=== PATIENT | female | born 1990 | race Caucasian/White ===

== ENCOUNTER 2023-09-29 20:12 | Emergency (ER) | payer MEDICAID ==
[~2023-09-29] VITALS: Ht 152.4 cm; Wt 45.5 kg
[2023-09-29 20:18] VITALS: TEMP 98.3
[2023-09-29 20:57] LABS: BASOPHILS % (AUTO) 0.2 % (0-1); EOSINOPHILS # (AUTO) 0.2 X10'3 (0-0.9); EOSINOPHILS % (AUTO) 1.4 % (0-6); HEMATOCRIT 42.8 % (35.0-45.0); HEMOGLOBIN 14.3 g/dl (12.0-16.0); LYMPHOCYTES # (AUTO) 1.3 X10'3 (1.1-4.8); LYMPHOCYTES % (AUTO) 9.6 % (21-51); MEAN CORPUSCULAR HEMOGLOBIN 30.6 PG (27.0-31.0); MEAN CORPUSCULAR HGB CONC 33.3 g/dL (33.0-36.5); MEAN CORPUSCULAR VOLUME 92.1 FL (78-98); MEAN PLATELET VOLUME 7.1 FL (7.4-10.4); MONOCYTES # (AUTO) 0.8 X10'3 (0-0.9); MONOCYTES % (AUTO) 5.6 % (2-12); NEUTROPHILS # (AUTO) 11.6 X10'3 (1.8-7.7); NEUTROPHILS % (AUTO) 83.2 % (42-75); PLATELET COUNT 407 X10'3 (140-440); RED BLOOD COUNT 4.65 X10'6 (4.20-5.60); RED CELL DISTRIBUTION WIDTH 12.7 % (11.5-14.5); WHITE BLOOD COUNT 13.9 X10'3 (4.5-11.0)
[2023-09-29] MEDS: mag hydrox/Alum hydrox/simeth 30ml oral suspension PO ONE (21:17)
[2023-09-29] MEDS: ondansetron/PF 4mg/2ml inj IV ONE (21:17)
[2023-09-29 21:18] LABS: ALANINE AMINOTRANSFERASE 28 U/L (12-78); ALBUMIN 3.9 G/DL (3.4-5.0); ALKALINE PHOSPHATASE 56 IU/L (46-116); ANION GAP 9 (8-16); ASPARTATE AMINO TRANSFERASE 13 U/L (10-37); BILIRUBIN,TOTAL 0.4 MG/DL (0.1-1.0); BLOOD UREA NITROGEN 10 MG/DL (7-18); CALCIUM 9.6 MG/DL (8.5-10.1); CHLORIDE 107 MMOL/L (99-107); CREATININE 0.77 MG/DL (0.40-0.90); GLUCOSE 106 MG/DL (70-104); POTASSIUM 3.9 MMOL/L (3.5-5.1); SODIUM 140 MMOL/L (135-145); TOTAL CARBON DIOXIDE 23.7 MMOL/L (24-32); TOTAL PROTEIN 7.8 G/DL (6.4-8.2); eCRCL 74 ML/MIN; eGFR 86 ML/MIN
[2023-09-29] MEDS: LIDOcaine 2% Viscous 15ml cup MM ONE (21:18)
[2023-09-29] MEDS: normal saline 1000ml 1,000 ML IV ONE (21:18)
[2023-09-29 21:20] LABS: LIPASE 60 U/L (16-77)
[2023-09-29] MEDS: fentaNYL/PF 50MCG/1 ML 2ML syringe IV ONE ×2 (21:20→23:25)
[2023-09-29 21:34] LABS: BILIRUBIN,URINE NEGATIVE (Neg); CLARITY,URINE SLIGHTLY CLOUDY (Clear); COLOR,URINE YELLOW (Yellow); GLUCOSE, URINE NEGATIVE (Neg); KETONES,URINE NEGATIVE (Neg); LEUKOCYTE ESTERASE ,URINE NEGATIVE (Neg); NITRITES, URINE NEGATIVE (Neg); OCCULT BLOOD,URINE TRACE-INTACT (Neg); PH,URINE 7.5 (4.8-8.0); PROTEIN,URINE NEGATIVE (Neg); UROBILINOGEN,URINE 0.2 E.U/dL (0.2-1.0)
[2023-09-29 21:35] LABS: UA COLLECTION TYPE CLN CATCH MIDSTREAM; URINE HCG NEGATIVE (NEG)
[2023-09-29 21:42] LABS: BACTERIA,URINE 3+ /HPF (Neg); MUCUS STRANDS FEW /LPF (Neg); RENAL CELLS, URINE MODERATE /HPF; SQUAMOUS EPITHELIAL CELL,UR MODERATE /LPF (FEW); TRANSITIONAL EPI CELLS,URINE FEW /HPF
[2023-09-29] MEDS: acetaminophen 1,000mg/100ml IV 100 ML IV ONE (21:57)
[2023-09-29 22:30] VITALS: BP 129/87; PULSE 99; O2SAT 98
[2023-09-29] MEDS ORDERED: ONDA8TAB13 PO (23:20)
[2023-09-29] MEDS ORDERED: BISA-78 PO (23:20)
[2023-09-29 23:25] VITALS: RESP 17
[2023-09-29] MEDS: dicyclomine 10 MG capsule PO ONE (23:26)
== END 2023-09-29 23:32 | disposition home or self-care (01) ==
LOC: ER 20:12
DX: R10.13 Epigastric pain (principal); Z88.5 Allergy status to narcotic agent; Z88.6 Allergy status to analgesic agent
CPT/HCPCS: 36415; 74176; 80053; 81001; 81025; 83690; 84484; 85025; 87088; 93005; 96361; 96374; 96375; 96376; 99285; J0131; J2405; J3010; J7030

== ENCOUNTER 2023-12-04 23:01 | Emergency (ER) | payer MEDICAID ==
[~2023-12-04] VITALS: Ht 152.4 cm; Wt 46.8 kg
[~2023-12-04 23:01] MED LIST: BISA-78 PO; ONDA-245 PO
[2023-12-04 23:20] VITALS: TEMP 98.4
[2023-12-04 23:49] LABS: BASOPHILS % (AUTO) 0.3 % (0-1); EOSINOPHILS # (AUTO) 0.1 X10'3 (0-0.9); EOSINOPHILS % (AUTO) 1.4 % (0-6); HEMATOCRIT 41.6 % (35.0-45.0); HEMOGLOBIN 14.2 g/dl (12.0-16.0); LYMPHOCYTES # (AUTO) 1.3 X10'3 (1.1-4.8); LYMPHOCYTES % (AUTO) 16.1 % (21-51); MEAN CORPUSCULAR HEMOGLOBIN 31.4 PG (27.0-31.0); MEAN CORPUSCULAR HGB CONC 34.2 g/dL (33.0-36.5); MEAN CORPUSCULAR VOLUME 91.8 FL (78-98); MEAN PLATELET VOLUME 6.9 FL (7.4-10.4); MONOCYTES # (AUTO) 0.7 X10'3 (0-0.9); MONOCYTES % (AUTO) 9.1 % (2-12); NEUTROPHILS # (AUTO) 5.8 X10'3 (1.8-7.7); NEUTROPHILS % (AUTO) 73.1 % (42-75); PLATELET COUNT 368 X10'3 (140-440); RED BLOOD COUNT 4.53 X10'6 (4.20-5.60); RED CELL DISTRIBUTION WIDTH 12.8 % (11.5-14.5)
[2023-12-05 00:08] LABS: ANION GAP 11 (8-16); BLOOD UREA NITROGEN 10 MG/DL (7-18); BUN/CREATININE RATIO 14.5 (10.0-20.0); CALCIUM 8.9 MG/DL (8.5-10.1); CHLORIDE 106 MMOL/L (99-107); CREATININE 0.69 MG/DL (0.40-0.90); GLUCOSE 107 MG/DL (70-104); POTASSIUM 4.3 MMOL/L (3.5-5.1); SODIUM 144 MMOL/L (135-145); TOTAL CARBON DIOXIDE 27.5 MMOL/L (24-32); eCRCL 82 ML/MIN; eGFR > 90 ML/MIN
[2023-12-05 00:12] LABS: ETHANOL < 10 MG/DL (<10); MAGNESIUM 2.2 MG/DL (1.5-2.4)
[2023-12-05] MEDS: mag hydrox/Alum hydrox/simeth 30ml oral suspension PO ONE (00:26)
[2023-12-05] MEDS: LIDOcaine 2% Viscous 15ml cup TP ONE (00:26)
[2023-12-05 00:46] LABS: LIPASE 54 U/L (16-77)
[2023-12-05 00:49] LABS: ALANINE AMINOTRANSFERASE 25 U/L (12-78); ALBUMIN 3.7 G/DL (3.4-5.0); ALBUMIN/GLOBULIN RATIO 0.9 (1.1-1.5); ALKALINE PHOSPHATASE 66 IU/L (46-116); ASPARTATE AMINO TRANSFERASE 17 U/L (10-37); BILIRUBIN,TOTAL 0.2 MG/DL (0.1-1.0); TOTAL PROTEIN 7.9 G/DL (6.4-8.2)
[2023-12-05 01:36] LABS: URINE HCG NEGATIVE (NEG)
[2023-12-05 01:45] LABS: URINE AMPHETAMINE SCREEN NEGATIVE (Neg); URINE BARBITUATE SCREEN NEGATIVE (Neg); URINE BENZODIAZEPINES SCREEN NEGATIVE (Neg); URINE CANNABINOID SCREEN NEGATIVE (Neg); URINE COCAINE SCREEN NEGATIVE (Neg); URINE METHADONE SCREEN NEGATIVE (Neg); URINE OPIATE SCREEN NEGATIVE (Neg); URINE PHENCYCLIDINE SCREEN NEGATIVE (Neg)
[2023-12-05 01:54] LABS: D-DIMER 0.25 MG/L FEU (0-0.50)
[2023-12-05 02:56] VITALS: BP 106/69; PULSE 87; RESP 16; O2SAT 98
== END 2023-12-05 02:50 | disposition home or self-care (01) ==
LOC: ER 23:01
DX: K20.90 Esophagitis, unspecified without bleeding (principal); R09.81 Nasal congestion; R05.9 Cough, unspecified; J06.9 Acute upper respiratory infection, unspecified; R10.13 Epigastric pain; Z88.5 Allergy status to narcotic agent; Z88.8 Allergy status to other drugs, medicaments and biological substances; Z79.899 Other long term (current) drug therapy
CPT/HCPCS: 36415; 71046; 80053; 80305; 80320; 81025; 83690; 83735; 84484; 85025; 85379; 93005; 99285

== ENCOUNTER 2023-12-16 21:43 | Emergency (ER) | payer MEDICAID ==
[~2023-12-16] VITALS: Ht 152.4 cm; Wt 47.0 kg
[2023-12-16] MEDS ORDERED: HYDR-3965 PO (22:40)
[2023-12-16] MEDS ORDERED: AMOX-117 PO (22:40)
[2023-12-16] MEDS ORDERED: FLUT16SP2 BOTHNARES (22:40)
[2023-12-16] MEDS ORDERED: PSEU120T56 PO (22:40)
[2023-12-16] MEDS: ketorolac trometh 15mg/ml vial 15 MG/ML ML IM ONE (22:51)
[2023-12-16 22:59] VITALS: BP 128/80; PULSE 80; RESP 16; TEMP 98.7; O2SAT 99
== END 2023-12-16 23:03 | disposition home or self-care (01) ==
LOC: ER 21:43
DX: J32.8 Other chronic sinusitis (principal); Z88.8 Allergy status to other drugs, medicaments and biological substances; Z91.040 Latex allergy status; Z79.899 Other long term (current) drug therapy
CPT/HCPCS: 96372; 99283; J1885

== ENCOUNTER 2023-12-23 18:34 | Emergency (ER) | payer MEDICAID ==
[~2023-12-23] VITALS: Ht 152.4 cm; Wt 44.5 kg
[~2023-12-23 18:34] MED LIST changes: +AMOX-117 PO; +FLUT16SP2 BOTHNARES; +HYDR-3965 PO; +PSEU120T56 PO
[2023-12-23 19:20] LABS: BASOPHILS % (AUTO) 0.2 % (0-1); EOSINOPHILS # (AUTO) 0.2 X10'3 (0-0.9); HEMATOCRIT 42.9 % (35.0-45.0); HEMOGLOBIN 14.1 g/dl (12.0-16.0); LYMPHOCYTES # (AUTO) 0.8 X10'3 (1.1-4.8); LYMPHOCYTES % (AUTO) 8.8 % (21-51); MEAN CORPUSCULAR HEMOGLOBIN 29.9 PG (27.0-31.0); MEAN CORPUSCULAR HGB CONC 32.8 g/dL (33.0-36.5); MEAN CORPUSCULAR VOLUME 91.1 FL (78-98); MEAN PLATELET VOLUME 6.5 FL (7.4-10.4); MONOCYTES # (AUTO) 0.8 X10'3 (0-0.9); MONOCYTES % (AUTO) 8.8 % (2-12); NEUTROPHILS # (AUTO) 6.9 X10'3 (1.8-7.7); NEUTROPHILS % (AUTO) 80.2 % (42-75); PLATELET COUNT 520 X10'3 (140-440); RED BLOOD COUNT 4.71 X10'6 (4.20-5.60); RED CELL DISTRIBUTION WIDTH 12.6 % (11.5-14.5); WHITE BLOOD COUNT 8.6 X10'3 (4.5-11.0)
[2023-12-23 19:25] LABS: ALANINE AMINOTRANSFERASE 23 U/L (12-78); ALBUMIN 3.3 G/DL (3.4-5.0); ALBUMIN/GLOBULIN RATIO 0.8 (1.1-1.5); ALKALINE PHOSPHATASE 62 IU/L (46-116); ANION GAP 8 (8-16); ASPARTATE AMINO TRANSFERASE 16 U/L (10-37); BILIRUBIN,TOTAL 0.2 MG/DL (0.1-1.0); BLOOD UREA NITROGEN 11 MG/DL (7-18); BUN/CREATININE RATIO 15.1 (10.0-20.0); CALCIUM 9.1 MG/DL (8.5-10.1); CHLORIDE 107 MMOL/L (99-107); CREATININE 0.73 MG/DL (0.40-0.90); GLUCOSE 96 MG/DL (70-104); SODIUM 142 MMOL/L (135-145); TOTAL CARBON DIOXIDE 26.8 MMOL/L (24-32); TOTAL PROTEIN 7.4 G/DL (6.4-8.2); eCRCL 76 ML/MIN; eGFR > 90 ML/MIN
[2023-12-23 19:33] LABS: PRO BRAIN NATRIURETIC PEPTIDE 188 PG/ML (0-125)
[2023-12-23] MEDS: pantoprazole 40 MG vial IV ONE (20:43)
[2023-12-23] MEDS: famotidine/PF 10 mg/ml inj IV ONE (20:44)
[2023-12-23] MEDS: ondansetron/PF 4mg/2ml inj IV ONE (20:44)
[2023-12-23] MEDS: mag hydrox/Alum hydrox/simeth 30ml oral suspension PO ONE (20:44)
[2023-12-23] MEDS: LIDOcaine 2% Viscous 15ml cup MM ONE (20:44)
[2023-12-23] MEDS ORDERED: LIDO15SO9 PO (21:41)
[2023-12-23] MEDS ORDERED: FAMO-129 PO (21:41)
[2023-12-23 22:02] VITALS: BP 115/79; PULSE 100; RESP 16; TEMP 98.7; O2SAT 99
== END 2023-12-23 22:03 | disposition home or self-care (01) ==
LOC: ER 18:35
DX: R07.9 Chest pain, unspecified (principal); Z88.8 Allergy status to other drugs, medicaments and biological substances; Z91.040 Latex allergy status; Z79.1 Long term (current) use of non-steroidal anti-inflammatories (NSAID); Z79.51 Long term (current) use of inhaled steroids; Z79.899 Other long term (current) drug therapy
CPT/HCPCS: 36415; 71045; 80053; 83880; 84484; 85025; 93005; 96374; 96375; 99285; J2405; J2470; J3490; J7030

== ENCOUNTER 2023-12-24 09:12 | Emergency (ER) | payer MEDICAID ==
[~2023-12-24] VITALS: Ht 152.4 cm; Wt 98.0 kg
[~2023-12-24 09:12] MED LIST changes: +FAMO-129 PO; +LIDO15SO9 PO
[2023-12-24 09:43] LABS: BASOPHILS % (AUTO) 0.3 % (0-1); EOSINOPHILS % (AUTO) 0.6 % (0-6); HEMOGLOBIN 14.6 g/dl (12.0-16.0); LYMPHOCYTES # (AUTO) 0.8 X10'3 (1.1-4.8); LYMPHOCYTES % (AUTO) 13.1 % (21-51); MEAN CORPUSCULAR HGB CONC 34.1 g/dL (33.0-36.5); MEAN CORPUSCULAR VOLUME 91.1 FL (78-98); MEAN PLATELET VOLUME 6.6 FL (7.4-10.4); MONOCYTES # (AUTO) 0.7 X10'3 (0-0.9); MONOCYTES % (AUTO) 11.8 % (2-12); NEUTROPHILS # (AUTO) 4.2 X10'3 (1.8-7.7); NEUTROPHILS % (AUTO) 74.2 % (42-75); PLATELET COUNT 502 X10'3 (140-440); RED BLOOD COUNT 4.72 X10'6 (4.20-5.60); RED CELL DISTRIBUTION WIDTH 12.6 % (11.5-14.5); WHITE BLOOD COUNT 5.7 X10'3 (4.5-11.0)
[2023-12-24 09:57] LABS: ALANINE AMINOTRANSFERASE 25 U/L (12-78); ALBUMIN 3.6 G/DL (3.4-5.0); ALBUMIN/GLOBULIN RATIO 0.8 (1.1-1.5); ALKALINE PHOSPHATASE 58 IU/L (46-116); ANION GAP 13 (8-16); ASPARTATE AMINO TRANSFERASE 20 U/L (10-37); BILIRUBIN,TOTAL 0.3 MG/DL (0.1-1.0); BLOOD UREA NITROGEN 10 MG/DL (7-18); BUN/CREATININE RATIO 11.4 (10.0-20.0); CALCIUM 9.6 MG/DL (8.5-10.1); CHLORIDE 105 MMOL/L (99-107); CREATININE 0.88 MG/DL (0.40-0.90); GLUCOSE 100 MG/DL (70-104); POTASSIUM 3.5 MMOL/L (3.5-5.1); SODIUM 140 MMOL/L (135-145); eCRCL 64 ML/MIN; eGFR 73 ML/MIN
[2023-12-24 10:06] LABS: PRO BRAIN NATRIURETIC PEPTIDE 195 PG/ML (0-125)
[2023-12-24] MEDS: ketorolac trometh 15mg/ml vial 15 MG/ML ML IV STA (10:59)
[2023-12-24] MEDS: LIDOcaine 2% Viscous 15ml cup MM ONE (12:02)
[2023-12-24] MEDS: mag hydrox/Alum hydrox/simeth 30ml oral suspension PO ONE (12:02)
[2023-12-24] MEDS: normal saline 1000ML IV soln IVB ONE ×2 (12:09→12:17)
[2023-12-24 13:08] LABS: H PYLORI ANTIBODY NEGATIVE (Neg)
[2023-12-24 13:09] VITALS: TEMP 98.7
[2023-12-24] MEDS ORDERED: acetaminophen 325mg tablet PO SCH (13:15)
[2023-12-24] MEDS: acetaminophen 325mg tablet PO ONE (13:21)
[2023-12-24 13:30] VITALS: BP 110/74; PULSE 105; RESP 16; O2SAT 98
== END 2023-12-24 13:37 | disposition home or self-care (01) ==
LOC: ER 09:13
DX: R07.89 Other chest pain (principal); K21.9 Gastro-esophageal reflux disease without esophagitis; B34.9 Viral infection, unspecified; Z88.8 Allergy status to other drugs, medicaments and biological substances; Z91.040 Latex allergy status; Z79.2 Long term (current) use of antibiotics; Z79.51 Long term (current) use of inhaled steroids; Z20.822 Contact with and (suspected) exposure to COVID-19
CPT/HCPCS: 36415; 71045; 76700; 80053; 83880; 84484; 85025; 86677; 87502; 87503; 87811; 93005; 96361; 96374; 99285; J1885; J7030

== ENCOUNTER 2024-03-11 09:56 | Day surgery (SDC) | payer MEDICAID ==
[2024-03-09 12:41] LABS: BASOPHILS % (AUTO) 0.4 % (0-1); EOSINOPHILS # (AUTO) 0.1 X10'3 (0-0.9); EOSINOPHILS % (AUTO) 0.9 % (0-6); LYMPHOCYTES # (AUTO) 1.9 X10'3 (1.1-4.8); LYMPHOCYTES % (AUTO) 30.6 % (21-51); MEAN CORPUSCULAR HEMOGLOBIN 30.7 PG (27.0-31.0); MEAN CORPUSCULAR HGB CONC 33.7 g/dL (33.0-36.5); MEAN CORPUSCULAR VOLUME 91.2 FL (78-98); MEAN PLATELET VOLUME 6.9 FL (7.4-10.4); MONOCYTES # (AUTO) 0.5 X10'3 (0-0.9); MONOCYTES % (AUTO) 7.4 % (2-12); NEUTROPHILS # (AUTO) 3.8 X10'3 (1.8-7.7); NEUTROPHILS % (AUTO) 60.7 % (42-75); PRE OP HEMATOCRIT 43.2 % (35.0-45.0); PRE OP HEMOGLOBIN 14.6 g/dL (12.0-16.0); PRE OP PLATELET COUNT 423 X10'3 (140-440); PRE OP WHITE BLOOD COUNT 6.3 10'3 (4.8-10.8); RED BLOOD COUNT 4.74 X10'6 (4.20-5.60); RED CELL DISTRIBUTION WIDTH 13.2 % (11.5-14.5)
[2024-03-09 13:04] LABS: HCG SERUM QL NEGATIVE
[2024-03-09 13:07] LABS: ALKALINE PHOSPHATASE 51 IU/L (46-116); BLOOD UREA NITROGEN 11 MG/DL (7-18); BUN/CREATININE RATIO 13.6 (10.0-20.0); CALCIUM 8.8 MG/DL (8.5-10.1); CHLORIDE 107 MMOL/L (99-107); CREATININE 0.81 MG/DL (0.40-0.90); PRE OP ALT 20 U/L (30-65); PRE OP ANION GAP 8 (8-16); PRE OP AST 15 U/L (10-37); PRE OP BILIRUB, TOTAL 0.6 MG/DL (0.0-1.0); PRE OP GLUCOSE 88 MG/DL (70-104); PRE OP POTASSIUM 4.1 MMOL/L (3.4-5.1); PRE OP SODIUM 143 MMOL/L (135-145); TOTAL CARBON DIOXIDE 27.7 MMOL/L (24-32); TOTAL PROTEIN 8.2 G/DL (6.4-8.2); eGFR 80 ML/MIN
[2024-03-11] VITALS (10 sets, daily range): BP systolic 105–121; BP diastolic 64–76; PULSE 81–95; RESP 11–17; TEMP 98.4; O2SAT 97–100
[~2024-03-11] VITALS: Ht 152.4 cm; Wt 44.4 kg
[~2024-03-11 09:56] MED LIST changes: +ALBU8HFA PO; -AMOX-117 PO; -BISA-78 PO; +BUPIVAcaine 0.25% w/Epi /PF 30ml vial ONE; +BUPIVAcaine/PF 2.5mg/ml (0.25%) 10ml vial ONE; +DESO1TAB33 PO; -FAMO-129 PO; -FLUT16SP2 BOTHNARES; -HYDR-3965 PO; -LIDO15SO9 PO; +LIDOcaine 1% (10mg/ml)w/preservative inj. 20ml MDV ONE; -ONDA-245 PO; -PSEU120T56 PO; +ceFAZolin 2gm in dextrose, iso 50 ML IV ONE
[2024-03-11] MEDS: famotidine 20mg tablet PO ONE (10:21)
[2024-03-11] MEDS: ringers solution, lacted 1,000 ML IV SCH (10:22)
[2024-03-11] MEDS ORDERED: fentaNYL/PF 50MCG/1 ML 2ML syringe ONE (10:37)
[2024-03-11] MEDS ORDERED: midazolam 1 mg/ML 2ml injection ONE (10:38)
[2024-03-11] MEDS ORDERED: propofol 10mg/ml 20ml vial IV ONE (10:41)
[2024-03-11] MEDS ORDERED: ketorolac trometh 30MG/ML vial 30 MG/ML VIAL ONE (10:47)
[2024-03-11] MEDS ORDERED: ondansetron/PF 4mg/2ml inj ONE (10:47)
[2024-03-11] MEDS ORDERED: meperidine/PF 25mg/ml syringe ONE (10:51)
[2024-03-11] MEDS: BUPIVAcaine 2.5mg/ml inj 50ml vial (contains preservative) SQ ONE (11:20)
== END 2024-03-11 13:21 | disposition home or self-care (01) ==
LOC: PAS 09:56
PROVIDERS: ATTEND Surgery
DX: R92.8 Other abnormal and inconclusive findings on diagnostic imaging of breast (principal); D24.1 Benign neoplasm of right breast; R94.31 Abnormal electrocardiogram [ECG] [EKG]; J45.909 Unspecified asthma, uncomplicated; F41.9 Anxiety disorder, unspecified; G43.909 Migraine, unspecified, not intractable, without status migrainosus; E05.90 Thyrotoxicosis, unspecified without thyrotoxic crisis or storm; Z79.899 Other long term (current) drug therapy; Z98.891 History of uterine scar from previous surgery; Z98.890 Other specified postprocedural states; Z88.5 Allergy status to narcotic agent; Z88.6 Allergy status to analgesic agent; Z91.040 Latex allergy status
CPT/HCPCS: 19120; 36415; 80053; 82948; 84703; 85025; 93005; J0665; J0690; J1100; J1885; J2175; J2250; J2405; J2704; J3010; J3490; J7030; J7120; Z7506; Z7508; Z7512; A4215; A4618; A6449; A7000; S0020